=== PATIENT | female | born 1950 | race Caucasian/White ===

== ENCOUNTER 2018-01-03 06:41 | Day surgery (SDC) | payer OTHER ==
[2018-01-02 09:30] VITALS: BMI 26.4
[2018-01-03] MEDS ORDERED: PROPOFOL 20 ML ONE ×6 (08:04→08:05)
[2018-01-03] MEDS ORDERED: LIDOCAINE HCL/PF 2% SDV 5ML VIAL ONE (08:04)
[2018-01-03] MEDS ORDERED: ATROPINE SULFATE 1 MG/10 ML DISP.SYRIN ONE (08:45)
[2018-01-03 09:00] VITALS: TEMP 97.6
[2018-01-03] MEDS ORDERED: ALBUTEROL SO4 18 GM HFA INHALER IH ONE (09:06)
[2018-01-03 09:51] VITALS: BP 131/68; PULSE 81
--- NOTE | 2018-01-06 13:05 | PATH ---
Surgical Pathology Report Patient Name: MERISSA HAYWOOD [facility]. Rec. #: [id number] /Age/Gender: 1950 (Age: 67) / F Account: [id number] Location: U-ENDOSCOPY Taken: 01/03/2018 Received: 01/03/2018 Reported: 01/06/2018 Physicians: Maria L Steele M.D. Specimen(s) Received A: BX SECOND PORTION DUODENUM & DUODENAL BULB B: BX ANTRUM C: BX GASTRIC FUNDUS POLYPS D: BX GE JUNCTION Clinical History Gastric and colon polyps surveillance Postoperative diagnosis: Gastric polyps, hiatal hernia, diverticulosis Final Diagnosis A. DUODENUM, SECOND PORTION AND DUODENAL BULB, BIOPSY: DUODENAL MUCOSA WITHOUT SIGNIFICANT PATHOLOGIC FINDINGS. B. STOMACH, ANTRUM, BIOPSY: GASTRIC ANTRAL MUCOSA WITH MILD CHRONIC GASTRITIS. IMMUNOHISTOCHEMICAL STAIN FOR H. PYLORI IS NEGATIVE. C. STOMACH, FUNDUS POLYPS, BIOPSY: FUNDIC GLAND POLYP(S). IMMUNOHISTOCHEMICAL STAIN FOR H. PYLORI IS NEGATIVE. D. GASTROESOPHAGEAL (GE) JUNCTION, BIOPSY: SQUAMOUS MUCOSA WITH VASCULAR CONGESTION AND MILD BASAL CELL HYPERPLASIA CONSISTENT WITH MILD REFLUX ESOPHAGITIS. SEPARATE FRAGMENT OF GASTRIC CARDIAC TYPE MUCOSA WITH MILD CHRONIC INFLAMMATION. Electronically Signed Jocelin Castaneda M.D. Gross Description A. Received in formalin, labeled "biopsy second portion of duodenum and duodenal bulb" are 3 bonilla, irregular portions of soft tissue ranging from 0.1-0.3 cm. in greatest dimension. The specimens are submitted in toto in one cassette. B. Received in formalin, labeled "biopsy antrum" are 2 bonilla, irregular portions of soft tissue averaging 0.2 cm. in greatest dimension. The specimens are submitted in toto in one cassette. C. Received in formalin, labeled "biopsy gastric fundic polyps" are 6 bonilla, irregular portions of soft tissue ranging from 0.1-0.3 cm. in greatest dimension. The specimens are submitted in toto in one cassette. D. Received in formalin, labeled "biopsy GE junction" are 2 bonilla, irregular portions of soft tissue averaging 0.2 cm. in greatest dimension. The specimens are submitted in toto in one cassette. DL01/03/2018 saudi01/03/2018
== END 2018-01-03 10:10 | disposition home or self-care (01) ==
LOC: JASU-ENDO 06:41
PROVIDERS: ATTEND Internal Medicine Gastroenterology
PROC: 0DB68ZX Excision of Stomach, Via Natural or Artificial Opening Endoscopic, Diagnostic (ICD-10-PCS; 2018-01-03)
PROC: 0DB48ZX Excision of Esophagogastric Junction, Via Natural or Artificial Opening Endoscopic, Diagnostic (ICD-10-PCS; 2018-01-03)
PROC: 0DJD8ZZ Inspection of Lower Intestinal Tract, Via Natural or Artificial Opening Endoscopic (ICD-10-PCS; 2018-01-03)
PROC: 0DB98ZX Excision of Duodenum, Via Natural or Artificial Opening Endoscopic, Diagnostic (ICD-10-PCS; principal; 2018-01-03 08:00)
DX: Z12.11 Encounter for screening for malignant neoplasm of colon (principal); Z86.010 Personal history of colon polyps; K57.30 Diverticulosis of large intestine without perforation or abscess without bleeding; K64.8 Other hemorrhoids; K22.2 Esophageal obstruction; K44.9 Diaphragmatic hernia without obstruction or gangrene; K31.7 Polyp of stomach and duodenum
CPT/HCPCS: 43239; G0105; 88305-TC; 88342-TC

== ENCOUNTER 2018-09-30 05:20 | Day surgery (SDC) | payer OTHER ==
[2018-09-29 11:55] VITALS: BMI 26.7
[2018-09-30] MEDS ORDERED: PROPOFOL 20 ML ONE (10:29)
[2018-09-30] MEDS ORDERED: MIDAZOLAM HCL 2 MG/2 ML SINGLE DOSE VIAL ONE (10:29)
[2018-09-30] MEDS ORDERED: LIDOCAINE HCL/PF 2% SDV 5ML VIAL ONE (10:30)
[2018-09-30] MEDS ORDERED: ceFAZolin SODIUM 1 GM VIAL ONE (11:59)
[2018-09-30] MEDS ORDERED: SODIUM CHLORIDE 0.9% P/F 10 ML VIAL IJ ONE (11:59)
[2018-09-30] MEDS ORDERED: ceFAZolin SODIUM 1 GM VIAL IVPB ONE (12:00)
[2018-09-30] MEDS ORDERED: DEXAMETHASONE SOD PHOSPHATE 4 MG/1 ML VIAL ONE (12:01)
[2018-09-30] MEDS ORDERED: LIDOCAINE HCL 1%, 10 MG/ML (20ML VIAL) ONE (12:09)
[2018-09-30] MEDS ORDERED: LIDOCAINE HCL 1%, 10 MG/ML (20ML VIAL) NR ONE (12:13)
[2018-09-30] MEDS ORDERED: GLYCOPYRROLATE 0.2 MG/1 ML VIAL ONE (12:18)
[2018-09-30] MEDS ORDERED: KETOROLAC TROMETHAMINE 30 MG/1 ML VIAL ONE (12:19)
[2018-09-30] MEDS ORDERED: PROMETHAZINE HCL 25 MG/1 ML VIAL IVPB PRN (12:36)
[2018-09-30] MEDS ORDERED: oxyCODONE HCL 5 MG TABLET PO PRN (12:36)
[2018-09-30] MEDS ORDERED: ONDANSETRON 4 MG/2 ML VIAL IVPUSH PRN (12:36)
[2018-09-30] MEDS ORDERED: LACTATED RINGERS SOLUTION 1,000 ML IV SCH (12:45)
--- NOTE | 2018-09-30 13:30 | OP ---
DATE OF OPERATION: 09/30/2018 PREOPERATIVE DIAGNOSIS: Thickened endometrium. POSTOPERATIVE DIAGNOSIS: Thickened endometrium. PROCEDURE: Dilatation and curettage and hysteroscopy. SURGEON: Pooja Victor MD ANESTHESIA: Moderate sedation and local. ESTIMATED BLOOD LOSS: 10 mL. COMPLICATIONS: None. INDICATIONS: This is a 68-year-old with history of thickened endometrium and an ovarian cyst which had been followed and decreasing in size. Endometrial biopsy was unable to be performed in the office due to stenotic os. Patient was counseled regarding surgical management. Risks, benefits, indications, alternatives were discussed with the patient, and all questions were answered. Informed consent was signed. PROCEDURE: The patient was taken to the operating room, placed in the dorsal supine position. Moderate sedation was achieved and LMA airway placed. She was placed in the dorsal lithotomy position and prepped and draped in normal sterile fashion. On exam under anesthesia, the uterus was noted to be small, less than 6 weeks' size, and cervix small. Pediatric speculum was placed in the vagina. The cervix was grasped with a single-toothed tenaculum, and 8 mL of 1% lidocaine was injected at 4 and 7 o'clock. The cervix was gently dilated and sounded to 6 cm. Endocervical curettage was performed. The 30-degree hysteroscope was then advanced through the cervix, and endometrial cavity was visualized. No lesions were seen. It appeared to be markedly atrophic. The hysteroscope was then removed, and the sharp curettage was performed. Minimal tissue was able to be obtained. There appeared to be a tiny polyp on the anterior endometrium. All instruments were removed from the patient's vaginal. Excellent hemostasis was seen. Sponge and instrument counts were correct. The patient was awakened and transferred in stable condition to the PACU. Pauline [id number]
[2018-09-30 15:12] VITALS: PULSE 80
[2018-09-30 15:23] VITALS: BP 128/78; TEMP 97.8
--- NOTE | 2018-10-01 16:24 | PATH ---
Surgical Pathology Report Patient Name: MERISSA HAYWOOD [facility]. Rec. #: [id number] /Age/Gender: 1950 (Age: 68) / F Account: [id number] Location: [facility] SURGICAL Taken: 09/30/2018 Received: 09/30/2018 Reported: 10/01/2018 Physicians: Pooja Victor MD Specimen(s) Received A: ENDOCERVICAL CURETTINGS B: ENDOMETRIAL CURETTINGS Clinical History Endometrium thickening, cyst of ovary Final Diagnosis A. ENDOCERVICAL CURETTINGS: SCANTY UNREMARKABLE ENDOCERVICAL GLANDS AND METAPLASTIC SQUAMOUS EPITHELIUM ADMIXED WITH MUCUS AND BLOOD. B. ENDOMETRIAL CURETTINGS: NO ENDOMETRIAL TISSUE PRESENT FOR EVALUATION. RARE SQUAMOUS EPITHELIUM AND BLOOD. Electronically Signed Harvinder Chong M.D. Gross Description A. Received in formalin labeled "endocervical curettings" are multiple fragments of pink-bonilla mucoid tissue measuring 0.7 x 0.5 cm in aggregate. Entire specimen submitted in one cassette. B. Received in formalin labeled "endometrial curettings" minute fragment of soft tissue measuring <1 cm in greatest dimension. The specimen may not survive tissue processing. The specimen is filtered and entirely specimen submitted in one cassette. MLSZ/09/30/2018 sanml/09/30/2018
== END 2018-09-30 15:24 | disposition home or self-care (01) ==
LOC: JASU-SURG 05:20
PROVIDERS: ATTEND Obstetrics & Gynecology Gynecologic Oncology
PROC: 0UDB7ZX Extraction of Endometrium, Via Natural or Artificial Opening, Diagnostic (ICD-10-PCS; principal; 2018-09-30 11:30)
PROC: 0UJD8ZZ Inspection of Uterus and Cervix, Via Natural or Artificial Opening Endoscopic (ICD-10-PCS; 2018-09-30 11:30)
DX: N85.00 Endometrial hyperplasia, unspecified (principal)
CPT/HCPCS: 86850; 86900; 86901; 88305-TC; 94760

== ENCOUNTER 2018-11-18 05:16 | Day surgery (SDC) | payer OTHER ==
[2018-11-17 13:35] VITALS: BMI 26.7
--- NOTE | 2018-11-18 11:45 | HP ---
History & Physical Update - History History: No Change - Physical Physical: No Change - Assessment Assessment: No Change - Plan Plan: No Change
[2018-11-18] MEDS ORDERED: ROCURONIUM BROMIDE 50 MG/5 ML VIAL ONE (12:37)
[2018-11-18] MEDS ORDERED: fentaNYL CITRATE 250 MCG/5 ML VIAL ONE (12:37)
[2018-11-18] MEDS ORDERED: PROPOFOL 20 ML ONE (12:37)
[2018-11-18] MEDS ORDERED: MIDAZOLAM HCL 2 MG/2 ML SINGLE DOSE VIAL ONE (12:37)
[2018-11-18] MEDS ORDERED: ceFAZolin SODIUM 1 GM VIAL IVPB ONE (13:43)
[2018-11-18] MEDS ORDERED: NEOSTIGMINE METHYLSULFATE 0.5 MG/ML - 10 ML MDV ONE (15:05)
[2018-11-18] MEDS ORDERED: ONDANSETRON 4 MG/2 ML VIAL IVPB PRN (15:24)
[2018-11-18] MEDS ORDERED: diphenhydrAMINE HCL 25 MG CAPSULE (FP) PO PRN (15:24)
[2018-11-18] MEDS ORDERED: PROCHLORPERAZINE INJECTION 10 MG/2 ML VIAL IVPB PRN (15:24)
[2018-11-18] MEDS ORDERED: METOCLOPRAMIDE HCL INJECTION 10 MG/2 ML VIAL IVPUSH PRN (15:24)
[2018-11-18] MEDS ORDERED: MORPHINE SULFATE 2 MG/ML VIAL IVPUSH PRN (15:24)
[2018-11-18] MEDS ORDERED: ONDANSETRON 4 MG/2 ML VIAL IVPUSH PRN (15:25)
[2018-11-18] MEDS ORDERED: oxyCODONE HCL 5 MG TABLET PO PRN (15:26)
[2018-11-18] MEDS ORDERED: ALBUTEROL SO4 8 GM HFA INHALER IH PRN (15:30)
[2018-11-18] MEDS ORDERED: ACETAMINOPHEN 325 MG TABLET (FP) PO SCH (15:30)
[2018-11-18] MEDS ORDERED: LACTATED RINGERS SOLUTION 1,000 ML IV SCH (15:30)
--- NOTE | 2018-11-18 15:31 | SURG ---
Surgery Director Of Nursing Note Director Of Nursing: Vishnu Turner PA-C Date of Service: 11/18/18 Diagnosis: thickened endometrium Procedure: robotic assisted total hysterectomy I was present for the entirety of the operative procedure. For further detail, please refer to operative report.
--- NOTE | 2018-11-18 15:31 | OP ---
Operative Note - Note: Operative Date: 11/18/18 Pre-Operative Diagnosis: Thickened endometrium Operation: Robotic assisted total hysterectomy Post-Operative Diagnosis: Same as Pre-op Surgeon: Pooja Victor Nutrition Aide: Vishnu Turner Anesthesia: General Specimens Removed: Uterus and ovaries Estimated Blood Loss (mls): 10 Fluid Volume Replaced (mls): 1,000 Operative Report Dictated: Yes
[2018-11-18] MEDS: KETOROLAC TROMETHAMINE 15 MG/ML VIAL IVPUSH SCH ×2 (15:51→23:19)
[2018-11-18] MEDS ORDERED: GLYCOPYRROLATE 1 MG/5 ML VIAL IVPB ONE (15:55)
[2018-11-18] MEDS ORDERED: GLYCOPYRROLATE 0.2 MG/1 ML VIAL ONE (15:55)
--- NOTE | 2018-11-18 18:25 | OP ---
DATE OF OPERATION: 11/18/2018 PREOPERATIVE DIAGNOSIS: Thickened endometrium, stenotic cervix, and left adnexal mass. POSTOPERATIVE DIAGNOSIS: Thickened endometrium, stenotic cervix, and left adnexal mass. PROCEDURE: Robotic-assisted total hysterectomy, bilateral salpingo-oophorectomy. SURGEON: Pooja Victor MD ACTUARIAL DIRECTOR: Vishnu Turner PA-C ANESTHESIA: General endotracheal and local. ESTIMATED BLOOD LOSS: 25 mL. COMPLICATIONS: None. INDICATIONS: This is a 68-year-old with history of a persistent left adnexal cyst as well as thickened endometrium. A dilation and curettage and hysteroscopy was attempted; however, the specimen was insufficient for endometrial tissue. The patient was counseled regarding definitive diagnosis and surgical management. Risks, benefits, indications, and alternatives were discussed. All questions were answered. Informed consent was signed. FINDINGS: Normal liver edge. Normal upper abdominal examination. Uterus was 6 weeks size. Right tube and ovary appeared normal. The left tube contained a paratubal cyst, approximately 3 cm. The left ovary appeared normal. There was no evidence of disease in the pelvis or abdomen. Upon frozen section, the endometrium contained a polyp, which did not appear to be invading the endometrium on gross. Will defer to permanent. PROCEDURE: The patient was taken to the operating room and placed in the dorsal supine position. General endotracheal anesthesia was obtained without difficulty. She was placed in the dorsal lithotomy position in Adithya stirrups and prepped and draped in the normal sterile fashion. Ken catheter was placed in the bladder. Speculum was placed in the vagina. The cervix was markedly stenotic and atrophic. The speculum was placed in the vagina and the cervix was grasped with a single-toothed tenaculum and gently dilated. A Peak uterine manipulator was placed and tenaculum and speculum were then removed. Attention was turned to the patient's abdomen. Then 5 mL of 0.5% Marcaine was injected into the umbilicus and the 8-mm incision was made with a scalpel. While tenting the anterior abdominal wall, the Veress needle was inserted intra-abdominally and the abdomen was insufflated with CO2 gas. An 8-mm trocar was placed and intraabdominal placement was confirmed by direct visualization with the laparoscope. Additional 8-mm trocar was placed in the left mid quadrant and right mid quadrant and a 5-mm assist port was placed in the right lower quadrant. All trocars were placed under direct visualization after injected 0.25% Marcaine with epinephrine. A thorough examination of the abdomen and pelvis was performed with the above noted findings. The left adnexa was elevated. The left ureter was noted to be well away from the field of dissection. The left infundibulopelvic ligament was clamped, cauterized, and transected. Dissection was carried through the broad ligament, the round ligament, and vesicouterine peritoneum anteriorly. The bladder flap was created anteriorly, dissecting the bladder off of the anterior leaf of the cervix and the vagina. The right adnexa was elevated. The right ureter was noted to be well away from the field of dissection. The right infundibulopelvic ligament was clamped, cauterized, and transected. Dissection was carried through the broad ligament and the round ligament and the vesicouterine peritoneum and the anterior leaf of the cervix. The bladder was dissected off of the anterior cervix and upper vagina. The uterine arteries bilaterally were skeletonized. They were clamped, cauterized, and transected. Cardinal ligaments were serially clamped, cauterized, and transected. The uterosacral ligaments were clamped, cauterized, and transected. A vaginotomy incision was made circumferentially around the cervix. The uterus, cervix, ovaries, and tubes were passed through the vagina and the vaginal cuff was closed in a running cutaneous fashion using 2-0 V-Loc suture. The pelvis was thoroughly irrigated with saline and noted to be hemostatic. Surgicel was placed on the vaginal cuff for added assurance. All instruments were removed from the patient's abdomen. The da Jose robot was then undocked. We again looked intra-abdominally and excellent hemostasis was seen. All trocars were removed. The skin was closed with 4-0 Monocryl and Dermabond was applied. The patient was extubated and transferred in stable condition to the PACU. Pauline [id number]
[2018-11-18] MEDS: ACETAMINOPHEN 325 MG TABLET (FP) PO SCH ×2 (18:34→22:24)
[2018-11-18] MEDS: PILOCARPINE 4% OP SCH ×2 (19:28→22:28)
[2018-11-18] MEDS: KETOROLAC TROMETHAMINE 30 MG/1 ML VIAL IVPUSH SCH (21:52)
[2018-11-18] MEDS ORDERED: PANTOPRAZOLE 40 MG TABLET (FP) PO SCH (22:00)
[2018-11-18] MEDS ORDERED: MONTELUKAST NA 10 MG TABLET PO SCH (22:00)
[2018-11-18] MEDS ORDERED: ATORVASTATIN CA 10 MG TABLET (FP) PO SCH (22:00)
[2018-11-18] MEDS ORDERED: OLOPATADINE HCL 30.5 GM NS SCH (22:00)
[2018-11-18] MEDS ORDERED: EZETIMIBE 10 MG TABLET (FP) PO SCH (22:00)
[2018-11-18] MEDS ORDERED: LATANOPROST 0.005% OPHTH SOLN 2.5ML BOTTLE OU SCH (22:00)
[2018-11-18] MEDS: OMEGA-3 ACID ETHYL ESTERS (FATTY-ACIDS) 1 GM CAPSULE (FP) PO SCH (22:21)
[2018-11-18] MEDS: acetaZOLAMIDE 250 MG TABLET PO SCH (22:22)
[2018-11-18] MEDS: DORZOLAMIDE 2% HCL OPHTHALMIC SOLUTION 10 ML BOTTLE OU SCH (22:30)
[2018-11-18] MEDS: BRIMONIDINE TARTRATE 0.15% OPHTHALMIC 5 ML BOTTLE OS SCH (22:31)
[2018-11-19] MEDS: ACETAMINOPHEN 325 MG TABLET (FP) PO SCH ×4 (02:02→14:33)
[2018-11-19] MEDS: KETOROLAC TROMETHAMINE 30 MG/1 ML VIAL IVPUSH SCH ×2 (03:34→11:25)
[2018-11-19] MEDS: DORZOLAMIDE 2% HCL OPHTHALMIC SOLUTION 10 ML BOTTLE OU SCH ×2 (06:12→14:32)
[2018-11-19] MEDS: BRIMONIDINE TARTRATE 0.15% OPHTHALMIC 5 ML BOTTLE OS SCH ×2 (06:13→14:32)
[2018-11-19 07:31] LABS: HEMOGLOBIN 13.8 GM/dL (10.7-15.3); MCH 31.7 pg (25.7-33.7); MCHC 34.5 g/dl (32.0-36.0); MEAN CELL VOLUME 91.9 fl (80-96); MEAN PLT VOLUME 9.9 fl (7.5-11.1); PLATELET COUNT 144 K/MM3 (134-434); RBC 4.36 M/mm3 (3.60-5.2); RDW 13.6 % (11.6-15.6)
--- NOTE | 2018-11-19 07:42 | DS ---
Physical Exam: SUBJECTIVE: Patient seen and examined. POD #1 s/p Robotic hysterectomy & bilat salpinoopherectomy. Doing well. Sitting in chair at bedside. Perkins removed at 7AM. Hasn't voided as of yet. Patient is legally blind therefore hasn't ambulated without assistance. States she had a tiny morsel of food last night as she didn't want to overdue it (tolerated what she did consume though). C/o mild incisional pain 2/10. Adequate pain control with meds ordered. Denies n/v/f /c, CP, palpitations, SOB or HILTON. OBJECTIVE: Last Vital Signs Temp Pulse Resp BP Pulse Ox 98.2 F 66 18 132/68 98 11/19/18 06:20 11/19/18 06:20 11/19/18 06:20 11/19/18 06:20 11/18/18 22:00 PE GENERAL: awake, alert, and fully oriented, in no acute distress. HEAD: Normal with no signs of trauma. NECK: Trachea midline, full range of motion, supple. LUNGS: CTA bilat HEART: RRR ABDOMEN: All surgical ports c/d/i. No hematoma or signs of infection. EXTREMITIES: 2+ pulses, warm, well-perfused, no edema. PSYCH: Normal mood, normal affect. LABS BMP 11/19/18 06:35 HOSPITAL COURSE: Date of Admission:11/18/18 Date of Discharge: 11/19/18 The patient was admitted to the [facility] Unit s/p Robotic hysterectomy w/ bilateral salpingoopherectomy. Mavis-operative IV ABX were administered. DVT prophylaxis was achieved with SCDs and early ambulation. Narcotic and non-narcotic pain management control was achieved with an oral and IV approach. POD #1, the perkins removed and trial of void initiated. Patient ambulated hallways with assistance as she is legally blind. [place] N[employer] checked prior to escribe of narcotics for pain management. The discharge instructions and an oral pain management plan were reviewed with the patient. All questions answered. Above plan discussed with Dr. Victor and agreed. Minutes to complete discharge: 35 Visit type - Case Type Case Type: Scheduled - New patient This patient is new to me today: Yes Date on this admission: 11/19/18
[2018-11-19 07:52] LABS: ANION GAP 4 MMOL/L (8-16); BLOOD UREA NITROGEN 15 mg/dL (7-18); CALCIUM 8.4 mg/dL (8.5-10.1); CHLORIDE 112 mmol/L (98-107); CO2 26 mmol/L (21-32); CREATININE 0.8 mg/dL (0.55-1.3); GLUCOSE,RANDOM 81 mg/dL (74-106); SODIUM 142 mmol/L (136-145)
[2018-11-19 08:54] VITALS: BP 136/76; PULSE 72; TEMP 98.9
--- NOTE | 2018-11-19 09:29 | PN ---
Progress Note (short form) - Note Progress Note: POD #1 - s/p robotic assisted hysterectomy under GA. VSS. Pt. doing well, sitting in chair having breakfast. No complaints. No apparent anesthetic complications noted. Continue current care.
[2018-11-19] MEDS ORDERED: PNEUMOC 13-VAL CONJ-DIP CRM/PF 0.5 ML DISP.SYRIN IM ONE (10:00)
[2018-11-19] MEDS ORDERED: FLUTICASONE PROP 0.05% 16 GM NASAL SPRAY NS SCH (10:00)
[2018-11-19] MEDS ORDERED: FERROUS SO4 325 MG TABLET (FP) PO SCH (10:00)
[2018-11-19] MEDS ORDERED: LOSARTAN POTASSIUM 25 MG TABLET PO SCH (10:00)
[2018-11-19] MEDS ORDERED: RALOXIFENE HCL 60 MG PO SCH (10:00)
[2018-11-19] MEDS ORDERED: ENOXAPARIN NA (PORCINE) 40 MG/0.4 ML DISP.SYRIN SQ SCH (10:00)
[2018-11-19] MEDS: acetaZOLAMIDE 250 MG TABLET PO SCH (11:22)
[2018-11-19] MEDS: OMEGA-3 ACID ETHYL ESTERS (FATTY-ACIDS) 1 GM CAPSULE (FP) PO SCH (11:22)
[2018-11-19] MEDS: PILOCARPINE 4% OP SCH ×2 (11:41→14:32)
--- NOTE | 2018-11-21 17:31 | PATH ---
Surgical Pathology Report Patient Name: MERISSA HAYWOOD [facility]. Rec. #: [id number] /Age/Gender: 1950 (Age: 68) / F Account: [id number] Location: AMBULATORY SURG Taken: 11/18/2018 Received: 11/18/2018 Reported: 11/21/2018 Physicians: Pooja Victor MD Specimen(s) Received UTERUS, CERVIX, BILATERAL OVARIES, FALLOPIAN TUBES Clinical History Cyst of ovary Intraoperative Consult Diagnosis Uterus, cervix, bilateral ovaries, fallopian tubes (FS): Endometrial polypoid lesion within cavity. Left cystic ovarian mass. Ger Hawk M.D., 11/18/2018 Final Diagnosis UTERUS, CERVIX, BILATERAL OVARIES, FALLOPIAN TUBES, ROBOTIC ASSISTED TOTAL HYSTERECTOMY AND BILATERAL SALPINGO-OOPHORECTOMY (FS): 44 G. ENDOMETRIAL POLYP(S). ATROPHIC ENDOMETRIUM. INTRAMURAL LEIOMYOMA. CERVIX WITH CHRONIC INFLAMMATION. LEFT OVARY WITH SEROUS CYSTADENOFIBROMA. LEFT FALLOPIAN TUBE WITH PARATUBAL CYST AND ENDOSALPINGOSIS. RIGHT OVARY AND FALLOPIAN TUBE WITHOUT SIGNIFICANT PATHOLOGIC FINDINGS. Comment: Immunohistochemical stain performed at [place], [place] ([id number]) and interpreted at [facility] for p53 utilized to evaluate this case. Prior materials are noted. Electronically Signed oJcelin Castaneda M.D. Gross Description Received fresh labeled "bilateral ovaries, bilateral fallopian tubes, cervix, uterus," is a 44 g uterus with an attached cervix and bilateral attached adnexa. The specimen measures 6.8 cm from superior to inferior, 3.5 cm from left to right and 2.8 cm from anterior to posterior. The serosa is bonilla-huitron and smooth. The attached cervix measures 3.2 cm in length and averages 2 cm in diameter. The ectocervix is bonilla, smooth and glistening. The endocervix is unremarkable. The endometrial cavity measures 3 cm in length and 2.2 cm from cornu to cornu. There is a 0.8 cm greatest dimension polypoid lesion on the anterior endometrium as well as a 0.8 cm greatest dimension polypoid lesion on the posterior endometrium. The remaining endometrium is bonilla and averages 0.1 cm in thickness. The myometrium displays a 0.9 cm in greatest dimension intramural nodule. The cut surface of the nodule is bonilla and rubbery with whorled architecture. The remaining myometrium is bonilla and averages 1.3 cm in thickness. The left fimbriated fallopian tube measures 3.7 cm in length. The outer surface is bonilla cheek with a 1.7 cm greatest dimension paratubal cyst attached to the fimbria. Sectioning of the fallopian tube reveals an unremarkable lumen. There is a 4.2 x 3.0 x 2.5 cm intact left ovarian cyst present. The cyst displays a 0.8 cm in greatest dimension bonilla, firm nodule on the outer surface. The lumen contains clear serous fluid. The inner lining of the cyst is smooth. There is no normal ovarian parenchyma remaining. The right fimbriated fallopian tube measures 4.3 cm in length. The outer surface is bonilla-huitron and smooth. Sectioning reveals an unremarkable lumen. The right ovary measures 2.0 x 1.3 x 0.7 cm. The outer surface is bonilla, convoluted and smooth. Sectioning reveals unremarkable ovarian parenchyma. An intraoperative gross consultation is performed. Fruit Grower sections are submitted in 18 cassettes as follows: 1-anterior cervix; 2-posterior cervix; 3-anterior lower uterine segment; 4-posterior lower uterine segment; 5-right parametrium; 6-left parametrium; 7-anterior endomyometrium with polyp; 8-additional anterior endomyometrium; 0-77-bizzklkox endomyometrium with polyp; 11-intramural nodule; 12-left fallopian tube fimbria with paratubal cyst; 13-cross sections of left fallopian tube; 14-left ovarian cyst with nodule on outer surface; 15-additional left ovarian cyst; 16-right fallopian tube fimbria; 17-cross sections of right fallopian tube; 18-right ovary. 11/19/2018 [facility]
== END 2018-11-19 14:25 | disposition home or self-care (01) ==
LOC: JASUSAT 05:16 → J3W 17:09 → JASUSAT 11-19 14:25
PROVIDERS: ATTEND Obstetrics & Gynecology Gynecologic Oncology
PROC: 0UT2FZZ Resection of Bilateral Ovaries, Via Natural or Artificial Opening With Percutaneous Endoscopic Assistance (ICD-10-PCS; 2018-11-18)
PROC: 0UT7FZZ Resection of Bilateral Fallopian Tubes, Via Natural or Artificial Opening With Percutaneous Endoscopic Assistance (ICD-10-PCS; 2018-11-18)
PROC: 8E0W4CZ Robotic Assisted Procedure of Trunk Region, Percutaneous Endoscopic Approach (ICD-10-PCS; 2018-11-18)
PROC: 0UT9FZZ Resection of Uterus, Via Natural or Artificial Opening With Percutaneous Endoscopic Assistance (ICD-10-PCS; principal; 2018-11-18 12:00)
DX: D25.1 Intramural leiomyoma of uterus (principal); N84.0 Polyp of corpus uteri; N72 Inflammatory disease of cervix uteri; D27.1 Benign neoplasm of left ovary; N94.89 Other specified conditions associated with female genital organs and menstrual cycle; N83.8 Other noninflammatory disorders of ovary, fallopian tube and broad ligament
CPT/HCPCS: 58552; S2900; 36415; 80048; 85027; 88307-TC; 88329; 90670; 94760; G0009

== ENCOUNTER 2019-03-13 12:18 | Emergency (ER) | payer OTHER ==
[2019-03-13 12:30] VITALS: BP 142/65; PULSE 67; TEMP 98.3; BMI 27.4
--- NOTE | 2019-03-13 12:45 | PDOC ---
*Physical Exam - Vital Signs Last Vital Signs Temp Pulse Resp BP Pulse Ox 98.3 F 67 18 142/65 97 03/13/19 12:28 03/13/19 12:28 03/13/19 12:28 03/13/19 12:28 03/13/19 12:28 Medical Decision Making - Medical Decision Making 03/13/19 14:27 68 yo F presenting with a tick attached to the chest wall Pt is blind and can not give any information about when it might have attached No fevers No rashes seen Pt also noted left leg swelling Pt seen by Midlevel Provider under my direct supervision Ancillary studies reviewed Duplex - Negative Will give prophylactic doxy (unclear how long tick has been attached) I agree with plan as outlined by Midlevel Provider 03/13/19 14:44 *DC/Admit/Observation/Transfer Diagnosis at time of Disposition: Tick bite, Left leg swelling - Discharge Dispostion Disposition: HOME Condition at time of disposition: Stable - Referrals - Patient Instructions Additional Instructions: Thank you for choosing [facility]. It was a pleasure taking care of you. The tick was removed from your chest wall and you were treated for Lyme's prophylactically You had ultrasound done of your leg which was negative for clots Please follow-up with your doctor in 2 days for further evaluation Return to the Emergency Department if your symptoms worsen or persist, you have fever, shortness of breath, chest pain, redness, rash or other concerning symptoms. - Post Discharge Activity
[2019-03-13] MEDS ORDERED: DOXYCYCLINE HYCLATE 100 MG CAPSULE PO ONE ×2 (13:04→13:19)
--- NOTE | 2019-03-13 13:24 | PDOC ---
History of Present Illness - General Chief Complaint: Foreign Body (FB) Stated Complaint: FOREIGN BODY Time Seen by Provider: 03/13/19 12:38 History Source: Patient Exam Limitations: No Limitations Past History - Past Medical History Allergies/Adverse Reactions: Allergies Allergy/AdvReac Type Severity Reaction Status Date / Time Penicillins Allergy Itching Verified 03/13/19 12:22 SEASONAL Allergy Severe Cough Uncoded 03/13/19 12:22 Home Medications: Ambulatory Orders Brimonidine Tartrate [Alphagan 0.15% -] 1 drop OS TID 04/14/12 Pilocarpine 4% [Pilostat 4% -] 1 drop OP QID 02/28/15 Ascorbic Acid [Vitamin C] 500 mg PO DAILY 01/02/18 Calcium Carb/D3/Mag Aa Chelate [Coral Calcium Capsule] 1 each PO DAILY 01/02/18 Cholecalciferol (Vitamin D3) [Vitamin D3] 5,000 unit PO DAILY 01/02/18 Ezetimibe/Simvastatin [Vytorin 10-10 mg Tablet] 1 tab PO HS 01/02/18 Ferrous Sulfate [Iron] 325 mg PO DAILY 01/02/18 Montelukast Sodium [Singulair] 10 mg PO HS 01/02/18 [place]-3 Acid Ethyl Esters [Lovaza] 2 gm PO BID 01/02/18 Pantoprazole Sodium [Protonix] 40 mg PO HS 01/02/18 Raloxifene HCl [Evista] 60 mg PO DAILY 01/02/18 Travoprost [Travatan Z] 5 ml OP HS 01/02/18 acetaZOLAMIDE [Diamox -] 125 mg PO BID 01/02/18 Dorzolamide HCl [Trusopt] 10 ml OP TID 01/03/18 Albuterol Sulfate [Proair Hfa] 8.5 gm IH PRN 09/29/18 Losartan Potassium 25 mg PO DAILY 11/17/18 Nasonex 1 puff .ROUTE DAILY 11/17/18 Olopatadine HCl [Patanase] 30.5 gm NS HS 11/17/18 Naproxen Sodium [Aleve] 220 mg PO PRN 11/18/18 Anemia: Yes (IRON DEFICIENCY) Asthma: Yes (HX BRONCHITIS) Cancer: No Cardiac Disorders: No CVA: No COPD: No CHF: No Dementia: No Diabetes: Yes (BORDERLINE-NONE NOW) GI Disorders: Yes (GERD, HH, ESOPHAGEAL ULCER,GASTRIC AND COLON POLYPSDIVERTICULOSIS) Disorders: No HTN: Yes Hypercholesterolemia: Yes Liver Disease: No Seizures: No Thyroid Disease: No - Surgical History Abdominal Surgery: No Appendectomy: No Cardiac Surgery: No Cholecystectomy: No Lung Surgery: No Neurologic Surgery: No Orthopedic Surgery: No - Suicide/Smoking/Psychosocial Hx Smoking Status: No Smoking History: Never smoked Have you smoked in the past 12 months: No Number of Cigarettes Smoked Daily: 0 If you are a former smoker, when did you quit?: 1972 Hx Alcohol Use: Yes (SOCIAL) Drug/Substance Use Hx: No Substance Use Type: None Hx Substance Use Treatment: No *Physical Exam - Vital Signs Last Vital Signs Temp Pulse Resp BP Pulse Ox 98.3 F 67 18 142/65 97 03/13/19 12:28 03/13/19 12:28 03/13/19 12:28 03/13/19 12:28 03/13/19 12:28 - Physical Exam General Appearance: No: Apparent Distress Respiratory/Chest: positive: Lungs Clear, Normal Breath Sounds. negative: Respiratory Distress Cardiovascular: positive: Regular Rhythm, Regular Rate, S1, S2. negative: Murmur Gastrointestinal/Abdominal: positive: Normal Bowel Sounds, Soft. negative: Tender, Distended, Guarding, Rebound Extremity: positive: Swelling (2+ pitting edema of LLE, no calf tenderness noted , no change in color of extremities, no warmth to leg). negative: Calf Tenderness, Erythema Integumentary: positive: Normal Color, Other (+tick noted attached to chest wall , tick is not engorged). negative: Rash Neurologic: positive: Alert, Normal Mood/Affect ED Treatment Course - RADIOLOGY Radiology Studies Ordered: Category Date Time Status DUPLEX VASCUL US-1 LEG [US] Stat Ultrasound 03/13/19 12:46 Ordered Medical Decision Making - Medical Decision Making 68 y/o F legally blind since (has service dog), HTN, HLD, anemia, asthma, GERD presents to ED after coworker noticed tick on patient's chest this AM. Mentions her dog has been tested for ticks and is clear of ticks. Patient lives with her cousin but states he had not mentioned anything about a tick yesterday. Denies recent travel/hiking/camping, rash. Also mentions c/o LLE swelling x 1-2 weeks. Denies fever, URI sxs, cough, sob, cp. Tick removed and sent to lab for identification Given it is not exactly clear how long the tick was attached to chest wall, patient given Doxycycline 200 mg as prophylaxis dose No current evidence of Lyme's disease noted LLE swelling - LLE US to r/o DVT 03/13/19 13:19 LLE study negative for DVT Patient given copy of report Stable for dc 03/13/19 14:12 *DC/Admit/Observation/Transfer Diagnosis at time of Disposition: Left leg swelling Tick bite Qualifiers: Encounter type: initial encounter Qualified Code(s): W57.XXXA - Bitten or stung by nonvenomous insect and other nonvenomous arthropods, initial encounter - Discharge Dispostion Disposition: HOME Condition at time of disposition: Stable Decision to Admit order: No - Referrals - Patient Instructions Additional Instructions: Thank you for choosing [facility]. It was a pleasure taking care of you. The tick was removed from your chest wall and you were treated for Lyme's prophylactically You had ultrasound done of your leg which was negative for clots Please follow-up with your doctor in 2 days for further evaluation Return to the Emergency Department if your symptoms worsen or persist, you have fever, shortness of breath, chest pain, redness, rash or other concerning symptoms. - Post Discharge Activity
== END 2019-03-13 14:27 | disposition home or self-care (01) ==
LOC: JER 12:18
DX: S20.359A Superficial foreign body of unspecified front wall of thorax, initial encounter (principal); S20.369A Insect bite (nonvenomous) of unspecified front wall of thorax, initial encounter; W57.XXXA Bitten or stung by nonvenomous insect and other nonvenomous arthropods, initial encounter; Y93.89 Activity, other specified; Y92.018 Other place in single-family (private) house as the place of occurrence of the external cause; Y99.8 Other external cause status; R60.0 Localized edema; I10 Essential (primary) hypertension; E78.00 Pure hypercholesterolemia, unspecified; D50.9 Iron deficiency anemia, unspecified; Z87.19 Personal history of other diseases of the digestive system; H54.8 Legal blindness, as defined in USA
CPT/HCPCS: 87168; 93971-TC; 99283-25

== ENCOUNTER 2019-08-11 08:49 | Day surgery (SDC) | payer OTHER ==
[2019-08-10 15:24] VITALS: BMI 27.0
[2019-08-11] MEDS ORDERED: PROPOFOL 20 ML ONE (12:04)
[2019-08-11] MEDS ORDERED: MIDAZOLAM HCL 2 MG/2 ML SINGLE DOSE VIAL ONE (12:05)
[2019-08-11] MEDS ORDERED: ceFAZolin SODIUM 1 GM VIAL ONE (12:16)
[2019-08-11] MEDS ORDERED: ceFAZolin SODIUM 1 GM VIAL IVPB ONE (12:17)
--- NOTE | 2019-08-11 12:27 | OP ---
Operative Note - Note: Operative Date: 08/11/19 Pre-Operative Diagnosis: Right renal calculus Operation: Right ESWL Findings: 6 mm right lp stone Surgeon: Ousmane Song MD. Operative Report Dictated: Yes
--- NOTE | 2019-08-11 13:42 | OP ---
DATE OF OPERATION: 08/11/2019 PREOPERATIVE DIAGNOSIS: Right renal calculus. POSTOPERATIVE DIAGNOSIS: Right renal calculus. PROCEDURE: Right electrohydraulic shock-wave lithotripsy. 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 Patient had vague bilateral flank pain preoperatively. A CAT scan was performed at which time a 6-mm stone was noted in the right kidney as well as several stones in the left as well as left renal cyst. Since the bulk of the renal function was on the right side, attention was turned towards the right side at which time we were able to localize a 6-mm stone in the lower pole using ultrasonography. A time-out was performed. Sedation was administered. Ancef was given. Approximately 2500 shocks were delivered in electromagnetic fashion. Patient tolerated procedure well, and the stone visibly appeared to fragment on imaging. Patient then brought to recovery room in stable and satisfactory condition. Pauline [id number]
[2019-08-11 15:57] VITALS: BP 136/70; PULSE 70; TEMP 97.8
== END 2019-08-11 15:57 | disposition home or self-care (01) ==
LOC: JASU-SURG 08:49
PROVIDERS: ATTEND Urology
PROC: 0TF3XZZ Fragmentation in Right Kidney Pelvis, External Approach (ICD-10-PCS; principal; 2019-08-11 11:30)
DX: N20.0 Calculus of kidney (principal)
CPT/HCPCS: 94760

== ENCOUNTER 2019-10-06 07:00 | Day surgery (SDC) | payer OTHER ==
[2019-10-05 14:51] VITALS: BMI 27.0
[2019-10-06] MEDS ORDERED: ELECTROLYTE-148 SOLN 1,000 ML IV SCH (11:15)
--- NOTE | 2019-10-06 11:16 | OP ---
Operative Note - Note: Operative Date: 10/06/19 Pre-Operative Diagnosis: Left renal calculus Operation: Left ESWL Findings: 9 mm left renal calc Post-Operative Diagnosis: Same as Pre-op Anesthesia: General Operative Report Dictated: Yes
[2019-10-06 11:24] VITALS: TEMP 97.4
[2019-10-06 11:36] VITALS: BP 127/74; PULSE 60
--- NOTE | 2019-10-06 15:58 | OP ---
DATE OF OPERATION: 10/06/2019 PREOPERATIVE DIAGNOSIS: Left renal calculus. POSTOPERATIVE DIAGNOSIS: Left renal calculus. PROCEDURE: Left electrohydraulic shock-wave lithotripsy. HISTORY: This is a very pleasant 69-year-old female with history of prior calculi. Preoperatively, patient was found to have approximately 9-mm lower pole stone. After discussing treatment options, the patient elected to undergo the above-stated procedure. Risks and benefits of treatment, alternative treatment discussed in detail. All questions were answered. BRIEF OPERATIVE NOTE: Patient brought to the operating suite. The stone was localized using 3D fluoroscopy as well as ultrasonography. Approximately 2500 shocks were delivered in electromagnetic fashion. The patient tolerated the procedure well. The stone appeared to fragment radiographically. The patient was then brought to recovery room in stable and satisfactory condition. ALYX CRAWLEY M.D. [id number]
== END 2019-10-06 12:20 | disposition home or self-care (01) ==
LOC: JASU-SURG 07:00
PROVIDERS: ATTEND Urology
PROC: 0TF4XZZ Fragmentation in Left Kidney Pelvis, External Approach (ICD-10-PCS; principal; 2019-10-06 08:30)
DX: N20.0 Calculus of kidney (principal)

== ENCOUNTER 2020-09-21 06:52 | Emergency (ER) | payer OTHER ==
[2020-09-21 07:28] VITALS: BP 144/83; PULSE 75; TEMP 97.9; BMI 28.3
== END 2020-09-21 09:32 | disposition home or self-care (01) ==
LOC: JER 06:52
DX: L03.116 Cellulitis of left lower limb (principal)
CPT/HCPCS: 73590-TC-LT-FY; 93971-TC; 99284-25

== ENCOUNTER 2021-01-04 09:10 | Day surgery (SDC) | payer OTHER ==
[2020-12-29 13:30] VITALS: BMI 26.3
[2021-01-04 09:55] VITALS: TEMP 97.4
[2021-01-04] MEDS ORDERED: PROPOFOL 20 ML ONE ×3 (10:01)
[2021-01-04 11:49] VITALS: BP 121/61; PULSE 61
== END 2021-01-04 11:55 | disposition home or self-care (01) ==
LOC: FASU-ENDO 09:10
PROVIDERS: ATTEND Internal Medicine Gastroenterology
PROC: 0DB78ZX Excision of Stomach, Pylorus, Via Natural or Artificial Opening Endoscopic, Diagnostic (ICD-10-PCS; 2021-01-04)
PROC: 0DB48ZX Excision of Esophagogastric Junction, Via Natural or Artificial Opening Endoscopic, Diagnostic (ICD-10-PCS; 2021-01-04)
PROC: 0DB98ZX Excision of Duodenum, Via Natural or Artificial Opening Endoscopic, Diagnostic (ICD-10-PCS; principal; 2021-01-04 10:57)
DX: K29.50 Unspecified chronic gastritis without bleeding (principal); K44.9 Diaphragmatic hernia without obstruction or gangrene
CPT/HCPCS: 88305-TC; 88342-TC

== ENCOUNTER 2023-05-03 04:35 | Day surgery (SDC) | payer OTHER ==
[2023-05-01 11:27] VITALS: BMI 30.4
[2023-05-03 09:12] VITALS: RESP 20
[2023-05-03 09:33] VITALS: BP 139/74; PULSE 74; TEMP 97.8
== END 2023-05-03 09:42 | disposition home or self-care (01) ==
LOC: JASU-ENDO 04:35
PROVIDERS: ATTEND Internal Medicine Gastroenterology
PROC: 0DB98ZX Excision of Duodenum, Via Natural or Artificial Opening Endoscopic, Diagnostic (ICD-10-PCS; 2023-05-03)
PROC: 0DB78ZX Excision of Stomach, Pylorus, Via Natural or Artificial Opening Endoscopic, Diagnostic (ICD-10-PCS; 2023-05-03)
PROC: 0DB68ZX Excision of Stomach, Via Natural or Artificial Opening Endoscopic, Diagnostic (ICD-10-PCS; 2023-05-03)
PROC: 0DB28ZX Excision of Middle Esophagus, Via Natural or Artificial Opening Endoscopic, Diagnostic (ICD-10-PCS; 2023-05-03)
PROC: 0DB48ZX Excision of Esophagogastric Junction, Via Natural or Artificial Opening Endoscopic, Diagnostic (ICD-10-PCS; 2023-05-03)
PROC: 0DBC8ZX Excision of Ileocecal Valve, Via Natural or Artificial Opening Endoscopic, Diagnostic (ICD-10-PCS; principal; 2023-05-03 08:00)
DX: Z12.11 Encounter for screening for malignant neoplasm of colon (principal); K63.5 Polyp of colon; K29.50 Unspecified chronic gastritis without bleeding; K22.2 Esophageal obstruction; K44.9 Diaphragmatic hernia without obstruction or gangrene; K21.00 Gastro-esophageal reflux disease with esophagitis, without bleeding; K31.7 Polyp of stomach and duodenum; K57.30 Diverticulosis of large intestine without perforation or abscess without bleeding; Z86.010 Personal history of colon polyps; I10 Essential (primary) hypertension
CPT/HCPCS: 88305-TC; 88342-TC

== ENCOUNTER 2024-09-24 07:26 | Emergency (ER) | payer OTHER ==
[2024-09-24 07:44] VITALS: BMI 31.6
[2024-09-24 08:33] LABS: BASO % 0.4 % (0-2.0); HEMATOCRIT 41.7 % (32.4-45.2); HEMOGLOBIN 13.3 GM/dL (10.7-15.3); LYMPH % 9.7 % (8-40); MCH 29.1 pg (25.7-33.7); MCHC 31.9 g/dl (32.0-36.0); MEAN CELL VOLUME 91.1 fl (80-96); MEAN PLT VOLUME 9.8 fl (7.5-11.1); MONO % 3.3 % (3.8-10.2); NEUT % 85.6 % (42.8-82.8); PLATELET COUNT 213 10^3/uL (134-434); RBC 4.57 M/mm3 (3.60-5.2); RDW 13.1 % (11.6-15.6); WHITE BLOOD COUNT 15.1 K/mm3 (4.0-10.0)
[2024-09-24 08:47] LABS: INR 1.03 (0.83-1.09); PROTHROMBIN TIME (PATIENT) 11.6 SEC (9.7-13.0)
[2024-09-24 08:50] LABS: ACTIVATED PTT 26.3 SECONDS (25.2-36.5)
[2024-09-24] MEDS ORDERED: CEFAZOLIN 1 GM/D5W 1 GM/50 ML BAG ONE (09:05)
[2024-09-24] MEDS ORDERED: ACETAMINOPHEN INJECTION 100 ML ONE (09:05)
[2024-09-24] MEDS ORDERED: DIPHTH,PERTUSS(ACELL),TET 0.5 ML DISP.SYRIN IM ONE (09:06)
[2024-09-24] MEDS: morphine CARPU-JECT 2 MG/1 ML DISP.SYRIN IVPUSH ONE (09:18)
[2024-09-24] MEDS: DIPHTH,PERTUSS(ACELL),TET 0.5 ML DISP.SYRIN IM ONE (09:19)
[2024-09-24] MEDS: ACETAMINOPHEN 1000 MG/100 ML BAG IVPB ONE (09:20)
[2024-09-24 09:43] LABS: POTASSIUM 3.7 mmol/L (3.5-5.1)
[2024-09-24 09:47] LABS: BLOOD UREA NITROGEN 27.8 mg/dL (7-18); CALCIUM 9.3 mg/dL (8.5-10.1)
[2024-09-24 09:48] LABS: ALBUMIN 3.6 g/dl (3.4-5.0)
[2024-09-24 09:50] LABS: CREATININE 1.5 mg/dL (0.55-1.3)
[2024-09-24 09:52] LABS: BILIRUBIN,TOTAL 0.5 mg/dL (0.2-1); TOT PROT 6.2 g/dl (6.4-8.2)
[2024-09-24] MEDS: CEFAZOLIN 1 GM in DEXTROSE 5%-WATER - 50 ML IVPB ONE (10:29)
[2024-09-24 12:37] VITALS: BP 130/52; PULSE 87; RESP 18; TEMP 97.4
== END 2024-09-24 10:40 | disposition short-term general hospital (02) ==
LOC: JER 07:26
PROC: 3E03329 Introduction of Other Anti-infective into Peripheral Vein, Percutaneous Approach (ICD-10-PCS; principal; 2024-09-24)
PROC: 3E033NZ Introduction of Analgesics, Hypnotics, Sedatives into Peripheral Vein, Percutaneous Approach (ICD-10-PCS; 2024-09-24)
PROC: 3E0234Z Introduction of Serum, Toxoid and Vaccine into Muscle, Percutaneous Approach (ICD-10-PCS; 2024-09-24)
DX: S02.2XXB Fracture of nasal bones, initial encounter for open fracture (principal); S01.511A Laceration without foreign body of lip, initial encounter; R07.2 Precordial pain; M25.531 Pain in right wrist; W10.8XXA Fall (on) (from) other stairs and steps, initial encounter
CPT/HCPCS: 36415; 70450-TC; 70486-TC; 71045-TC-FY; 71260-TC; 72125-TC; 72128-TC; 72131-TC; 72170-TC-FY; 73110-TC-RT-FY; 73130-TC-RT-FY; 74177-TC; 80053; 82962; 84484; 85025; 85610; 85730; 86850; 86900; 86901; 90471; 90715; 93005; 93010; 96365; 96375; 99285-25; J0131; Q9967